=== PATIENT | female | born 1985 | race Caucasian/White ===

== ENCOUNTER 2025-03-09 14:07 | Outpatient (CLI) | payer OTHER, SELFPAY | END 2025-03-09 14:08 | disposition home or self-care (01) | LOC: NFLDREF 03-13 11:30 | PROVIDERS: Visit Provider Physician Assistant | DX: R10.33 Periumbilical pain (principal); R19.7 Diarrhea, unspecified; N39.0 Urinary tract infection, site not specified | CPT/HCPCS: 87086 ==